=== PATIENT | female | born 1980 | race Two or more races ===

== ENCOUNTER 2020-07-06 19:45 | Inpatient (IN) | payer MEDICAID ==
[~2020-07-06] VITALS: Ht 165.1 cm; Wt 78.5 kg
[2020-07-06 21:00] VITALS: BP 122/85
[2020-07-06] MEDS ORDERED: DILTIAZEM HCL 25 MG IV IV PRN (21:00)
[2020-07-06] MEDS ORDERED: ACETAMINOPHEN 325 MG TABLET PO PRN (21:00)
--- NOTE | 2020-07-06 21:00 | NUR ---
TELE/RN NOTES DIRECT ADMISSION ARRIVED. MD CENTENO ADMITTING DR. MEZA NOTIFIED. ORDERS HAVE BEEN PLACED AND CARRIED OUT.
--- NOTE | 2020-07-06 21:35 | NUR ---
TELE/RN OPENING NOTES PATIENT ARRIVED ON UNIT VIA GURNEY, BROUGHT IN BY [facility] AMBULANCE SERVICE. PATIENT SUSTAINED NO INJURIES DURING TRANSPORT. PATIENT WALKED TO BED BY SELF. PATIENT IS ALERT AND ORIENTED X 4. PATIENTS BREATHING IS EVEN AND UNLABORED. NO SIGNS OF SOB OR RESPIRATORY DISTRESS NOTED. PATIENT IS TOLERATING ROOM, VITAL SIGNS WNL.PATIENT HAS IV ACCESS ON LAC #18G INTACT FLUSHING WELL. PATIENT STATES NO PAIN AT THIS TIME. PATIENT HAS BELONGINGS AT BEDSIDE, SIGNED BELONGINGS LIST. PATIENT SKIN IS INTACT. PATIENT STATES SHE IS , DOES NOT KNOW HOW FAR ALONG SHE IS, URINE TEST HAS BEEN ORDERED COLLECTED BY LAB. SAFETY MEASURES ARE IN PLACE, BED IS LOCKED AND PLACED IN THE LOW POSITION, SIDE RAILS UP X 2, CALL LIGHT IS WITHIN REACH. WILL CONTINUE TO MONITOR THROUGH OUT SHIFT.
[2020-07-07] VITALS: BP 135/95
[2020-07-07 01:34] LABS: BASOPHILS # (AUTO) 0.1 /CMM (0.0-0.2); EOSINOPHILS % (AUTO) 2.3 % (0.0-6.0); HEMATOCRIT 41 % (33-45); HEMOGLOBIN 13.7 g/dL (11.5-14.8); LYMPHOCYTES # (AUTO) 3.4 /CMM (0.8-4.8); LYMPHOCYTES % (AUTO) 33.4 % (20.0-44.0); MEAN CORPUSCULAR HGB CONC 33 g/dl (31.0-36.0); MEAN CORPUSCULAR VOLUME 82 fL (82-100); MONOCYTES # (AUTO) 0.6 /CMM (0.1-1.30); MONOCYTES % (AUTO) 5.7 % (2.0-12.0); NEUTROPHILS # (AUTO) 5.8 /CMM (1.8-8.9); NEUTROPHILS % (AUTO) 57.6 % (43.0-81.0); PLATELET COUNT (AUTO) 290 /CMM (150-450); RED BLOOD CELL COUNT(AUTO) 5.05 MIL/uL (4.0-5.2); WHITE BLOOD COUNT (AUTO) 10.1 K/uL (4.3-11.0)
[2020-07-07 01:41] LABS: CREATININE 0.7 mg/dL (0.6-1.3); POTASSIUM 3.4 mmol/L (3.5-5.1)
--- NOTE | 2020-07-07 01:58 | NUR ---
THERAPEUTIC RECREATION SPECIALIST NOTE PRIMARY RN ON BREAK. WHILE COVERING, PATIENT RECEIVED A CRITICAL RESULT FOR TROPONIN 2.45 AT 0156. ENDORSED TO ANTHONY PRIMARY RN D/T RETURNING FROM BREAK NOW. HE WILL FOLLOW UP WITH RESULT.
[2020-07-07] MEDS: ASPIRIN EC 81 MG TABLET.DR PO SCH (03:52)
[2020-07-07] MEDS: ATORVASTATIN 40 MG TABLET PO SCH ×2 (03:52→21:18)
[2020-07-07 04:00] VITALS: BP 157/105
[2020-07-07] MEDS ORDERED: ENOXAPARIN SODIUM 80 MG/0.8 ML DISP.SYRIN SQ ONE (04:00)
--- NOTE | 2020-07-07 06:40 | NUR ---
TELE/RN CLOSING NOTES PATIENT IN BED RESTING. PATIENT ALERT AND ORIENTED X 4. PATIENT BREATHING IS EVEN AND UNLABORED. PATIENT IN NO SIGNS OF SOB OR RESPIRATORY DISTRESS. PATIENT IV IN LEFT AC #18G INTACT FLUSHING WELL, SL. SAFETY MEASURES ARE IN PLACE, BED IS LOCKED AND PLACED IN THE LOW POSITION, CALL LIGHT IS WITHIN REACH, SIDE RAILS UP X 2. WILL ENDORSE CARE TO DAY SHIFT NURS.
--- NOTE | 2020-07-07 07:25 | NUR ---
CRAFT RECRUITER OPENING NOTE RECEIVED PATIENT IN BED. A/O X4. AMBULATORY. AZERBAIJANI SPEAKING. ON ROOM AIR, NO SOB NOTED. IN NO APPARENT DISTRESS. DENIES ANY PAIN OR DISCOMFORT AT THIS TIME. TELE READING OF SR 74. IV ACCESS ON L AC #18 G, INTACT. SAFETY MEASURES MAINTAINED. BED IN LOWEST POSITION, BRAKES LOCKED. SIDE RAILS UP X2. CALL LIGHT WITHIN REACH. WILL CONTINUE PLAN OF CARE.
[2020-07-07 08:00] VITALS: BP 152/93
--- NOTE | 2020-07-07 08:55 | NUR ---
GAS ENGINE MECHANIC NOTE ENDORSED PATIENT TO AL PURI.
[2020-07-07] MEDS ORDERED: ASPIRIN 81 MG TAB.CHEW PO SCH (09:00)
[2020-07-07] MEDS ORDERED: ATORVASTATIN 10 MG TABLET PO SCH (09:00)
[2020-07-07 09:01] LABS: BASOPHILS # (AUTO) 0.1 /CMM (0.0-0.2); BASOPHILS % (AUTO) 0.7 % (0.0-2.0); EOSINOPHILS % (AUTO) 2.8 % (0.0-6.0); HEMATOCRIT 39 % (33-45); HEMOGLOBIN 12.9 g/dL (11.5-14.8); LYMPHOCYTES # (AUTO) 2.7 /CMM (0.8-4.8); LYMPHOCYTES % (AUTO) 35.2 % (20.0-44.0); MEAN CORPUSCULAR HGB CONC 33 g/dl (31.0-36.0); MEAN CORPUSCULAR VOLUME 82 fL (82-100); MONOCYTES # (AUTO) 0.3 /CMM (0.1-1.30); MONOCYTES % (AUTO) 3.6 % (2.0-12.0); NEUTROPHILS # (AUTO) 4.4 /CMM (1.8-8.9); NEUTROPHILS % (AUTO) 57.7 % (43.0-81.0); PLATELET COUNT (AUTO) 270 /CMM (150-450); RED BLOOD CELL COUNT(AUTO) 4.79 MIL/uL (4.0-5.2); WHITE BLOOD COUNT (AUTO) 7.5 K/uL (4.3-11.0)
[2020-07-07] MEDS: PANTOPRAZOLE 40 MG TABLET.DR PO SCH (09:21)
[2020-07-07] MEDS: METOPROLOL TARTRATE 50 MG TABLET PO SCH ×2 (09:22→21:17)
--- NOTE | 2020-07-07 09:37 | NUR ---
TELE/RN NOTES RECEIVED REPORT FROM AMAURY MELENDEZ.PATIENT IS ALERT AND ORIENTED X4, SERBIAN SPEAKING. PATIENT IS ON ROOM AIR SATURATING WELL. PATIENT IN NO RESPIRATORY DISTRESS NOTED. NO COMPLAINED OF PAIN NOTED AT THIS TIME. TROPONIN 2.464 MD IS AWARE NO NEW ORDER AT THIS TIME. WILL CONTINUE TO MONITOR.
[2020-07-07 11:09] LABS: ALBUMIN 3.3 g/dL (3.4-5.0); CALCIUM, SERUM 9.1 mg/dL (8.5-10.1); CREATININE 0.6 mg/dL (0.6-1.3); MAGNESIUM 2.2 mg/dL (1.8-2.4); PHOSPHORUS 2.4 mg/dL (2.5-4.9); POTASSIUM 3.4 mmol/L (3.5-5.1); TOTAL PROTEIN, SERUM 6.8 g/dL (6.4-8.2)
[2020-07-07 11:20] LABS: THYROID STIMULATING HORMONE 4.6 uIU/mL (0.358-3.74)
[2020-07-07] MEDS ORDERED: ACETAMINOPHEN 325 MG TABLET PO PRN (11:30)
[2020-07-07] MEDS ORDERED: MAGNESIUM HYDROXIDE 30 ML UDC PO PRN (11:30)
[2020-07-07] MEDS ORDERED: HYDROCODONE/APAP 5/325MG TABLET PO PRN (11:30)
[2020-07-07] MEDS ORDERED: ONDANSETRON HCL/PF 4 MG/2 ML VIAL IVP PRN (11:30)
[2020-07-07] MEDS ORDERED: Z GUARD REMEDY 2 OZ OINT TP PRN (11:30)
[2020-07-07] MEDS ORDERED: MAG HYDROX/AL HYDROX/SIMETH 30 ML UDC PO PRN (11:30)
[2020-07-07] MEDS ORDERED: POTASSIUM CHLORIDE 20 MEQ TAB.PRT.SR PO SCH (15:30)
[2020-07-07] MEDS ORDERED: K PHOS NEUTRAL 250 MG TABLET PO ONE (15:30)
[2020-07-07] MEDS: ENOXAPARIN SODIUM 80 MG/0.8 ML DISP.SYRIN SQ SCH (15:30)
--- NOTE | 2020-07-07 15:44 | NUR ---
TELE/RN NOTES TROPONIN 2.443 AT 14:49 DR. CENTENO IS AWARE, NO NEW ORDER AT THIS TIME. WILL CONTINUE TO MONITOR.
[2020-07-07 16:04] VITALS: BP 146/96
--- NOTE | 2020-07-07 18:53 | NUR ---
TELE/RN CLOSING NOTES PATIENT IS ON BED, AWAKE ALERT AND ORIENTED X4. PATIENT IS ON ROOM AIR SATURATION 98%. PATIENT IN NO APPARENT RESPIRATORY DISTRESS NOTED. NO COMPLAINED OF PAIN NOTED AT THIS TIME. TELE MONITOR READING SINUS RHYTHM 77 BPM. IV ACCESS AT LEFT AC # 18G PATENT AND INTACT. SEEN EXAMINED BY MD WITH ORDERS MADE AND CARRIED OUT. ALL DUE MEDICATIONS WAS GIVEN. SAFETY PRECAUTIONS WAS IN PLACED. BED IN LOWEST POSITION AND LOCKED. SIDE RIALS UP X2. CALL LIGHT WITHIN REACH. WILL ENDORSED TO MACHINE MADE SHOE UNIT WORKER FOR MARIELA.
--- NOTE | 2020-07-07 19:24 | NUR ---
RN NOTES PATIENT IS ON BED, AWAKE ALERT AND ORIENTED X4. PATIENT IS ON ROOM AIR SATURATION 98%. PATIENT IN NO APPARENT RESPIRATORY DISTRESS NOTED. NO COMPLAINED OF PAIN NOTED AT THIS TIME. TELE MONITOR READING SINUS RHYTHM 77 BPM. IV ACCESS AT LEFT AC # 18G PATENT AND INTACT. SAFETY PRECAUTIONS WAS IN PLACED. BED IN LOWEST POSITION AND LOCKED. SIDE RIALS UP X2. CALL LIGHT WITHIN REACH. WILL CONTINUE TO MONITOR.
[2020-07-07 20:00] VITALS: BP 135/94
[2020-07-08] VITALS: BP 151/96
[2020-07-08] MEDS: ENOXAPARIN SODIUM 80 MG/0.8 ML DISP.SYRIN SQ SCH ×2 (04:37→16:00)
[2020-07-08 04:58] VITALS: BP 142/79
[2020-07-08 06:31] LABS: BASOPHILS # (AUTO) 0.1 /CMM (0.0-0.2); BASOPHILS % (AUTO) 0.9 % (0.0-2.0); EOSINOPHILS % (AUTO) 2.9 % (0.0-6.0); HEMATOCRIT 38 % (33-45); HEMOGLOBIN 12.6 g/dL (11.5-14.8); LYMPHOCYTES # (AUTO) 2.2 /CMM (0.8-4.8); LYMPHOCYTES % (AUTO) 34.1 % (20.0-44.0); MEAN CORPUSCULAR HGB CONC 33 g/dl (31.0-36.0); MEAN CORPUSCULAR VOLUME 82 fL (82-100); MONOCYTES # (AUTO) 0.4 /CMM (0.1-1.30); MONOCYTES % (AUTO) 6.5 % (2.0-12.0); NEUTROPHILS # (AUTO) 3.6 /CMM (1.8-8.9); NEUTROPHILS % (AUTO) 55.6 % (43.0-81.0); PLATELET COUNT (AUTO) 279 /CMM (150-450); RED BLOOD CELL COUNT(AUTO) 4.65 MIL/uL (4.0-5.2); WHITE BLOOD COUNT (AUTO) 6.5 K/uL (4.3-11.0)
--- NOTE | 2020-07-08 06:34 | NUR ---
RN NOTES PATIENT IN BED, AWAKE ALERT AND ORIENTED X3-4. PATIENT IS ON ROOM AIR SATURATION 98%. PATIENT IN NO APPARENT RESPIRATORY DISTRESS NOTED. NO COMPLAINED OF PAIN NOTED AT THIS TIME. TELE MONITOR READING SINUS RHYTHM 77 BPM. IV ACCESS AT LEFT AC # 18G PATENT AND INTACT. SAFETY PRECAUTIONS WAS IN PLACED. BED IN LOWEST POSITION AND LOCKED. SIDE RIALS UP X2. CALL LIGHT WITHIN REACH. WILL ENDORSE CARE..
[2020-07-08 07:30] LABS: ALBUMIN 3.2 g/dL (3.4-5.0); BILIRUBIN,TOTAL 1.5 mg/dL (0.2-1.0); CALCIUM, SERUM 9.3 mg/dL (8.5-10.1); CREATININE 0.6 mg/dL (0.6-1.3); MAGNESIUM 2.3 mg/dL (1.8-2.4); PHOSPHORUS 2.9 mg/dL (2.5-4.9); POTASSIUM 3.6 mmol/L (3.5-5.1); TOTAL PROTEIN, SERUM 6.7 g/dL (6.4-8.2)
--- NOTE | 2020-07-08 07:58 | NUR ---
Patient noted troponin result 2.617 this morning, Dr. Villarreal made aware and received CTCA order.
[2020-07-08 08:00] VITALS: BP 150/103
--- NOTE | 2020-07-08 08:00 | NUR ---
RN Opening note Received patient in bed, AO x 3-4 Kazakh speaking, able to responds all stimuli. Denies pain or distress. Respiratory even and unlabored on room air. Skin is warm to touch, keep clean/dry, intact IV line. Kept elevated HOB for ensure airway and aspiration precaution, also lowest bed position for safety. Patient noted Troponin CH/2.617, made aware, and received CTA order. Call light within reach, will continue to monitor.
[2020-07-08] MEDS: PANTOPRAZOLE 40 MG TABLET.DR PO SCH (08:52)
[2020-07-08] MEDS: ASPIRIN EC 81 MG TABLET.DR PO SCH (08:52)
[2020-07-08] MEDS ORDERED: VALSARTAN 80 MG TABLET PO SCH (09:00)
[2020-07-08] MEDS: METOPROLOL TARTRATE 50 MG TABLET PO SCH ×3 (09:10→17:57)
--- NOTE | 2020-07-08 10:00 | NUR ---
Patient verbally understanding CTA and signed on consent form.
[2020-07-08] MEDS ORDERED: CT SWABBABLE VALVE TRANS SET 1 EA INFUS.SET MC ONE (11:24)
[2020-07-08] MEDS ORDERED: IOHEXOL-350 100 ML VIAL IV ONE (11:24)
[2020-07-08] MEDS ORDERED: IV NS 0.9% 250 ML IV ONE (11:24)
[2020-07-08] MEDS ORDERED: METOPROLOL TARTRATE INJ 5 MG/5 ML AMPUL ONE (12:14)
[2020-07-08] MEDS ORDERED: NITROGLYCERIN 4.9 GM SPRAY SL ONE (13:00)
[2020-07-08] MEDS ORDERED: METOPROLOL TARTRATE INJ 5 MG/5 ML AMPUL IVP ONE (13:00)
[2020-07-08 16:00] VITALS: BP 141/84
--- NOTE | 2020-07-08 17:44 | NUR ---
RN Closing note Patient in bed resting, does no appears pain or distress, refused Lovenox due at 1600. Respiratory even and unlabored on room air and O2sat 97%. Skin is warm to touch, keep clean/dry. Patient done CTA today and encouraged oral fluid intake as tolerated. Kept elevated HOB for ensure airway and aspiration precaution, also lowest bed position for safety. Call light within reach, will endorse utility mechanic supervisor.
--- NOTE | 2020-07-08 19:35 | NUR ---
rn opening notes received pt in bed. awake, honduran speaking, a/o x 4. gastroenterologist utilized, able to make needs known. pt is on room air no distress noted, breathing even and unlabored. on tele monitoring presents with nsr heart rate is 75, at this time. pt denies pain and chest pain. iv site flushed, clean dry intact dressing. pt is ambulatory with steady gait. needs attended safety measures in place. hob elevated as tolerated. side rails up x2 pt bed locked in lowest position. call light within reach, will cont to monitor.
[2020-07-08 20:00] VITALS: BP 152/94
--- NOTE | 2020-07-08 21:53 | NUR ---
at 2141 pt left against medical advice. pt was educated on importance of hospitalization x3 risks and benefits, with director public policy at bedside. pt still insists on leaving. removed iv site, no s/s of bleeding noted. catheter intact. pressure held for 1min. gauze secured. all belongings accounted for and with pt. AMA paperwork signed, configuration release manager , dr pierre notified. charge aide aware. nurs supervisor baking notified.
== END 2020-07-08 21:42 | disposition left against medical advice (07) | DRG 201 ==
LOC: TELE 19:50
PROVIDERS: ADMIT Internal Medicine; ATTEND Internal Medicine
DX: I47.1 Supraventricular tachycardia (principal); I21.4 Non-ST elevation (NSTEMI) myocardial infarction; F29 Unspecified psychosis not due to a substance or known physiological condition; G31.84 Mild cognitive impairment of uncertain or unknown etiology; Z20.822 Contact with and (suspected) exposure to COVID-19
CPT/HCPCS: 36415; 71045-TC; 75574; 80048-TC; 80053-TC; 80061-TC; 83735-TC; 84100-TC; 84439-TC; 84443-TC; 84484-TC; 84703-TC; 85025-TC; 87081-TC; 93307-TC; G0378; J1650; J3490; J7050; Q9967

== ENCOUNTER 2020-09-01 14:35 | Inpatient (IN) | payer MEDICAID ==
[~2020-09-01] VITALS: Ht 160 cm; Wt 79.4 kg
[2020-09-01] MEDS ORDERED: MAGNESIUM HYDROXIDE 30 ML UDC PO PRN (17:30)
[2020-09-01] MEDS ORDERED: Z GUARD REMEDY 2 OZ OINT TP PRN (17:30)
[2020-09-01] MEDS ORDERED: HYDROCODONE/APAP 5/325MG TABLET PO PRN (17:30)
[2020-09-01] MEDS ORDERED: INSULIN REGULAR, HUMAN 100 UNIT/ML 3 ML VIAL SQ PRN (17:30)
[2020-09-01] MEDS ORDERED: *INSULIN REGULAR(HUMULIN R)HUM 100 UNIT/ML VIAL SQ PRN (17:30)
[2020-09-01] MEDS ORDERED: BLOOD SUGAR DIAGNOSTIC 1 EACH STRIP VI SCH (17:30)
[2020-09-01] MEDS ORDERED: MAG HYDROX/AL HYDROX/SIMETH 30 ML UDC PO PRN (17:30)
[2020-09-01] MEDS ORDERED: ONDANSETRON HCL/PF 4 MG/2 ML VIAL IVP PRN (17:30)
[2020-09-01] MEDS ORDERED: DEXTROSE 50%-WATER 50 ML DISP.SYRIN IV PRN (17:30)
[2020-09-01] MEDS ORDERED: ACETAMINOPHEN 325 MG TABLET PO PRN (17:30)
[2020-09-01] MEDS ORDERED: ENOXAPARIN SODIUM 30 MG/0.3 ML DISP.SYRIN SQ SCH (19:00)
[2020-09-01] MEDS: ASPIRIN 325 MG TABLET PO SCH (19:13)
[2020-09-01] MEDS: ENOXAPARIN SODIUM 80 MG/0.8 ML DISP.SYRIN SQ SCH (19:30)
[2020-09-01 20:00] VITALS: BP 158/102
--- NOTE | 2020-09-01 20:14 | NUR ---
MS/TELE/RN RECEIVED PATIENT LYING IN BED AWAKE, ALERT, ORIENTED, COMFORTABLE, NO C/O PAIN, NO DISTRESS NOTED, CALL LIGHT IN REACH. WILL MONITOR.
[2020-09-01] MEDS: IV NS 0.9% 1,000 ML IV PRN (20:27)
[2020-09-02] VITALS: BP 162/114
[2020-09-02 04:00] VITALS: BP 151/100
--- NOTE | 2020-09-02 06:16 | NUR ---
MS/TELE/RN PATIENT IS AWAKE AT THIS TIME, APPEAR COMFORTABLE, NO SIGNS OF DISTRESS NOTED, ALL NEEDS ATTENDED AT THIS TIME, WILL CONTINUE TO MONITOR.
[2020-09-02 06:48] LABS: BASOPHILS % (AUTO) 0.7 % (0.0-2.0); EOSINOPHILS % (AUTO) 3.3 % (0.0-6.0); HEMATOCRIT 35 % (33-45); HEMOGLOBIN 11.9 g/dL (11.5-14.8); LYMPHOCYTES # (AUTO) 1.9 /CMM (0.8-4.8); LYMPHOCYTES % (AUTO) 30.7 % (20.0-44.0); MEAN CORPUSCULAR HGB CONC 34 g/dl (31.0-36.0); MEAN CORPUSCULAR VOLUME 81 fL (82-100); MONOCYTES # (AUTO) 0.4 /CMM (0.1-1.30); MONOCYTES % (AUTO) 6.2 % (2.0-12.0); NEUTROPHILS # (AUTO) 3.7 /CMM (1.8-8.9); NEUTROPHILS % (AUTO) 59.1 % (43.0-81.0); PLATELET COUNT (AUTO) 235 /CMM (150-450); RED BLOOD CELL COUNT(AUTO) 4.32 MIL/uL (4.0-5.2); WHITE BLOOD COUNT (AUTO) 6.3 K/uL (4.3-11.0)
[2020-09-02 07:24] LABS: CALCIUM, SERUM 8.3 mg/dL (8.5-10.1); CREATININE 0.5 mg/dL (0.6-1.3); MAGNESIUM 2.1 mg/dL (1.8-2.4); PHOSPHORUS 1.9 mg/dL (2.5-4.9); POTASSIUM 3.5 mmol/L (3.5-5.1)
--- NOTE | 2020-09-02 07:38 | NUR ---
TELE/RN OPENING NOTES RECEIVED PATIENT ON BED, AWAKE ALERT AND ORIENTED X4. PATIENT IS ON ROOM AIR. PATIENT IN NO APPARENT RESPIRATORY DISTRESS NOTED. NO COMPLAINED OF PAIN NOTED AT THIS TIME. TELE MONITOR SINUS RHYTHM 99 BPM. WILL CONTINUE TO MONITOR.
[2020-09-02 08:00] VITALS: BP 167/100
--- NOTE | 2020-09-02 08:40 | NUR ---
TELE/RN NOTES BP 167/[address] CENTENO WAS AWARE AND ORDER CLONIDINE 0.1 MG EVERY 6 HOURS PRN SBP >150 AND TEST NOTED AND CARRIED OUT.
[2020-09-02] MEDS ORDERED: CLONIDINE HCL 0.1 MG TABLET PO PRN (09:00)
[2020-09-02] MEDS: ASPIRIN 325 MG TABLET PO SCH (09:10)
[2020-09-02] MEDS: ENOXAPARIN SODIUM 80 MG/0.8 ML DISP.SYRIN SQ SCH ×2 (09:11→20:43)
[2020-09-02] MEDS ORDERED: NEUTRA PHOS 1 POWD.PACKET PO SCH (09:30)
[2020-09-02] MEDS: CEFTRIAXONE 1 G in IV D5W 50 ML IV SCH (09:53)
[2020-09-02] MEDS: AZITHROMYCIN 500 MG in IV D5W 250 ML IV SCH (11:01)
[2020-09-02] MEDS: METOPROLOL TARTRATE 50 MG TABLET PO SCH ×2 (11:11→17:06)
[2020-09-02] MEDS: POTASSIUM PHOSPHATE MM 7.5 MMOL in IV NS 0.9% 100 ML IV SCH ×2 (11:54→16:24)
--- NOTE | 2020-09-02 12:33 | NUR ---
TELE/RN NOTES TROPONIN 0.412 DR. COLLINS WAS AWARE NO NEW ORDER AT THIS TIME.
--- NOTE | 2020-09-02 12:38 | NUR ---
ECHO WAS CANCELED, IT WAS DONE 07/07/[address] COLLINS AND DIRECTOR DIETETICS DEPARTMENT.
[2020-09-02 16:00] VITALS: BP 137/86
[2020-09-02] MEDS: IV NS 0.9% 1,000 ML IV PRN (16:23)
--- NOTE | 2020-09-02 18:39 | NUR ---
TELE/RN CLOSING NOTES PATIENT IS ON BED, AWAKE ALERT AND ORIENTED X4. PATIENT IS ON ROOM AIR SATURATION 98%. PATIENT IN NO APPARENT RESPIRATORY DISTRESS NOTED. NO COMPLAINED OF PAIN NOTED AT THIS TIME. TELE MONITOR SINUS RHYTHM 77 BPM. IV ACCESS AT LEFT HAND # 20 G AND RIGHT THUMB # 20 WITH IV FLUID OF NS 1L AT 75ML/HR ON AND INFUSING WELL. SEEN AND EXAMINED BY MD WITH ORDERS MADE AND CARRIED OUT. ALL DUE MEDICATIONS WAS GIVEN. ALL NEEDS WAS ATTENDED. WILL CONTINUE TO MONITOR.
--- NOTE | 2020-09-02 19:20 | NUR ---
TELE-RN OPENING NOTE RECEIVED PATIENT RESTING IN BED. AWAKE, ALERT AND ORIENTED X 4. ABLE TO MAKE NEEDS KNOWN. NO COMPLAINTS OF PAIN AT THIS TIME. CONTINUES ON ROOM AIR WITH NO S/SX OF RESPIRATORY DISTRESS NOTED. IV ACCESS TO RIGHT THUMB AND LEFT HAND INTACT AND PATENT. CONTINUES ON IV ABX. CALL LIGHT WITHIN REACH. ASPIRATION, FALL AND SAFETY PRECAUTIONS MAINTAINED. WILL CONTINUE TO MONITOR.
[2020-09-02 20:56] VITALS: BP 146/102
--- NOTE | 2020-09-02 22:00 | NUR ---
TELE-RN NOTE IV TO RIGHT THUMB AND LEFT HAND BOTH INFILTRATED. NO SWELLING NOTED AT THE SITE. IV'S REMOVED AND PRESSURE DRESSINGS APPLIED. NEW IV INSERTED TO RIGHT FOREARM #20G WITH PATIENT TOLERATING WELL. CONTINUES ON IVF NS @ 75ML/HR. WILL CONTINUE TO MONITOR.
[2020-09-03 00:28] VITALS: BP 157/93
[2020-09-03] MEDS: METOPROLOL TARTRATE 50 MG TABLET PO SCH ×3 (00:34→11:40)
[2020-09-03 04:33] VITALS: BP 125/99
[2020-09-03 06:13] LABS: BASOPHILS # (AUTO) 0.1 /CMM (0.0-0.2); BASOPHILS % (AUTO) 0.7 % (0.0-2.0); EOSINOPHILS % (AUTO) 3.5 % (0.0-6.0); HEMATOCRIT 34 % (33-45); HEMOGLOBIN 11.3 g/dL (11.5-14.8); LYMPHOCYTES # (AUTO) 1.8 /CMM (0.8-4.8); LYMPHOCYTES % (AUTO) 26.2 % (20.0-44.0); MEAN CORPUSCULAR HGB CONC 34 g/dl (31.0-36.0); MEAN CORPUSCULAR VOLUME 82 fL (82-100); MONOCYTES # (AUTO) 0.4 /CMM (0.1-1.30); MONOCYTES % (AUTO) 5.4 % (2.0-12.0); NEUTROPHILS # (AUTO) 4.4 /CMM (1.8-8.9); NEUTROPHILS % (AUTO) 64.2 % (43.0-81.0); PLATELET COUNT (AUTO) 222 /CMM (150-450); WHITE BLOOD COUNT (AUTO) 6.8 K/uL (4.3-11.0)
--- NOTE | 2020-09-03 06:22 | NUR ---
TELE-RN NOTE PATIENT CALLED RN IN TO BATHROOM. STATES SHE IS BLEEDING WHEN URINATING. HEMATURIA WITH SOME CLOTS NOTED. VSS AT THIS TIME. PATIENT DENIES DIZZINESS OR LIGHTHEADEDNESS. INDUSTRIAL COMMERCIAL GROUNDSKEEPER MD EDWARDS NOTIFIED. NO NEW ORDERS AT THIS TIME. PATIENT HAS CBC PENDING. WILL CONTINUE TO MONITOR.
--- NOTE | 2020-09-03 06:31 | NUR ---
TELE-RN BEE EDWARDS WITH NEW ORDER FOR U/A. ORDER INPUTTED AND CARRIED OUT.
--- NOTE | 2020-09-03 06:45 | NUR ---
TELE-RN CLOSING NOTE PATIENT CURRENTLY RESTING IN BED. AWAKE, ALERT AND ORIENTED X 4. ABLE TO MAKE NEEDS KNOWN. NO COMPLAINTS OF PAIN AT THIS TIME. CONTINUES ON ROOM AIR WITH NO S/SX OF RESPIRATORY DISTRESS NOTED. IV ACCESS TO RIGHT FOREARM INTACT AND PATENT. CONTINUES ON IVF NS @ 75ML/HR. CONTINUES ON IV ABX. CALL LIGHT WITHIN REACH. ASPIRATION, FALL AND SAFETY PRECAUTIONS MAINTAINED. WILL ENDORSE PLAN OF CARE TO ONCOMING SHIFT.
[2020-09-03 06:59] LABS: CREATININE 0.5 mg/dL (0.6-1.3); MAGNESIUM 2.1 mg/dL (1.8-2.4); PHOSPHORUS 3.4 mg/dL (2.5-4.9); POTASSIUM 3.8 mmol/L (3.5-5.1)
--- NOTE | 2020-09-03 07:29 | NUR ---
TELE-RN OPENING NOTE RECEIVED PATIENT RESTING IN BED. AWAKE, ALERT AND ORIENTED X 4. ABLE TO MAKE NEEDS KNOWN. NO COMPLAINTS OF PAIN AT THIS TIME. PATIENT IS BREATHING EVENLY AND NONLABORED CONTINUES ON ROOM AIR WITH NO S/SX OF RESPIRATORY DISTRESS NOTED. IV ACCESS TO R FOREARM # 20 GAUGE INTACT AND PATENT. CONTINUES ON IV ABX. CALL LIGHT WITHIN REACH. ASPIRATION, FALL AND SAFETY PRECAUTIONS MAINTAINED. WILL CONTINUE TO MONITOR.
[2020-09-03 08:00] VITALS: BP 144/98
[2020-09-03] MEDS: ASPIRIN 325 MG TABLET PO SCH (08:07)
[2020-09-03] MEDS: CEFTRIAXONE 1 G in IV D5W 50 ML IV SCH (08:07)
[2020-09-03] MEDS: ENOXAPARIN SODIUM 80 MG/0.8 ML DISP.SYRIN SQ SCH (08:08)
[2020-09-03] MEDS ORDERED: LEVO500T90 PO (08:53)
[2020-09-03] MEDS ORDERED: METO50TA16 PO (08:53)
[2020-09-03] MEDS: AZITHROMYCIN 500 MG in IV D5W 250 ML IV SCH (09:00)
[2020-09-03 11:40] VITALS: BP 159/98
--- NOTE | 2020-09-03 12:49 | NUR ---
SECRETARY OF STATE NOTE RECEIVED ORDER FOR DISCHARGE. PATIENT IS AWAKE, ALERT AND ORIENTED X 4. ABLE TO MAKE NEEDS KNOWN. NO COMPLAINTS OF PAIN AT THIS TIME. PATIENT IS BREATHING EVENLY AND NONLABORED CONTINUES ON ROOM AIR WITH NO S/SX OF RESPIRATORY DISTRESS NOTED. IV AND ID WAS REMOVED. DISCHARGE INSTRUCTIONS WERE GIVEN BOTH ORALLY AND WRITTEN. PATIENT VERBALIZED UNDERSTANDING. PATIENT WAS GIVEN BUS PASS AND DIRECTIONS ON HOW TO ARRIVE AT BUS STATION AND HOME. PATIENT LEFT/AMBULATED IN STABLE CONDITION VIA PUBLIC TRANSPORTATION.
[2020-09-03 14:46] LABS: BILIRUBIN,URINE NEGATIVE (NEGATIVE); COLOR,URINE YELLOW (YELLOW); LEUKOCYTE ESTERASE ,URINE SMALL (NEGATIVE); NITRITE, URINE NEGATIVE (NEGATIVE); PROTEIN,URINE NEGATIVE (NEGATIVE); UGLUCOSE NEGATIVE (NEGATIVE); UROBILINOGEN,URINE 0.2 EU/dL (0.2)
[2020-09-03 15:01] LABS: BACTERIA,URINE RARE /HPF (None Seen); RBC,URINE 21-50 /HPF (0-2)
== END 2020-09-03 12:50 | disposition home or self-care (01) | DRG 139 ==
LOC: TELE 17:13
PROVIDERS: ADMIT Internal Medicine; ATTEND Internal Medicine
DX: J15.9 Unspecified bacterial pneumonia (principal); I21.A1 Myocardial infarction type 2; E87.0 Hyperosmolality and hypernatremia; I47.1 Supraventricular tachycardia; E83.39 Other disorders of phosphorus metabolism; G31.84 Mild cognitive impairment of uncertain or unknown etiology; F29 Unspecified psychosis not due to a substance or known physiological condition; E66.9 Obesity, unspecified; Z68.31 Body mass index [BMI] 31.0-31.9, adult; G47.33 Obstructive sleep apnea (adult) (pediatric)
CPT/HCPCS: 36415; 71045-TC; 80048-TC; 81001; 83735-TC; 84100-TC; 84484-TC; 84703-TC; 85025-TC; 87081-TC; 87086-TC; G0378; J0456; J0696; J1650; J3490; J7030; J7050; J7060